=== PATIENT | female | born 1975 | race Caucasian/White ===

== ENCOUNTER 2021-06-17 20:43 | Emergency (ER) | payer MEDICAID ==
[~2021-06-17] VITALS: Ht 160 cm; Wt 57.0 kg
[2021-06-17] MEDS ORDERED: HYDROCO/APAP1 TA9 PO (21:53)
[2021-06-17 22:15] VITALS: BP 150/80
== END 2021-06-17 22:17 | disposition home or self-care (01) ==
LOC: ED 20:43
DX: S92.411A Displaced fracture of proximal phalanx of right great toe, initial encounter for closed fracture (principal); W22.09XA Striking against other stationary object, initial encounter; Y92.89 Other specified places as the place of occurrence of the external cause

== ENCOUNTER 2022-02-09 16:02 | Observation (INO) | payer MEDICAID ==
[2022-02-09] VITALS (19 sets, daily range): BP systolic 102–132; BP diastolic 80–104
[~2022-02-09] VITALS: Ht 160 cm; Wt 63.5 kg
[~2022-02-09 16:02] MED LIST: AMOX/K CLAV875 M1 PO; BACTRIM DS1 TAB PO; CYCLOBENZAPRINE10 MG PO; CYMBALTA30 MG PO; DIFLUCAN150 MG PO; HYDROCO/APAP1 TA9 PO; HYDROXYZ HCL10 MG PO; LOTRIMIN AF JOCK1 % TOP; MACROBID100 M1 PO; MEDDOSEPAK PO; MELOXICAM7.5 MG PO; METRONIDAZOLE500 MG PO; MOTRIN800 MG PO; NITROFURANTN100 MG PO; OMEPRAZOLE20 MG PO; VISTARIL 50MG C50 M1 PO
[2022-02-09 16:35] LABS: HEMATOCRIT 43.7 % (37.0-47.0); HEMOGLOBIN 14.6 g/dl (12.0-16.0); IMMATURE GRANULOCYTES 0.2 % (0.0-5.0); MEAN CORPUSCULAR HGB 30.7 pG CALC (26.0-32.0); MEAN CORPUSCULAR HGB CONC 33.4 g/dL CAL (32.0-36.0); NEUT# 3.01 thou/uL (2.00-7.15); RED BLOOD COUNT 4.75 mill/uL (4.20-5.60); RED CELL DISTRI WIDTH 11.7 % (11.5-15.5)
[2022-02-09 18:31] LABS: ALBUMIN 4.1 g/dL (3.2-5.0); ALKALINE PHOSPHATASE 63 u/l (38-126); ANION GAP 13 (6-22 (CALC)); BILIRUBIN, TOTAL 0.6 mg/dL (0.0-1.4); BUN 17 mg/dL (7-17); BUN/CREATININE RATIO 23 (12-20 (CALC)); CARBON DIOXIDE 26 mmol/l (22-30); CHLORIDE 104 mmol/l (95-108); CREATININE 0.7 mg/dL (0.5-1.0); GFR FOR AFR.AMER. > 60 ML/MIN (>=60 (CALC)); GFR OTHER RACES > 60 ML/MIN (>=60 (CALC)); POTASSIUM 3.6 mmol/l (3.5-5.1); SGOT/AST 20 u/l (14-36); SODIUM 139 mmol/l (137-146)
[2022-02-09 18:51] LABS: PROTHROMBIN TIME 9.9 SECONDS (9.0-12.5)
[2022-02-09 19:34] LABS: URINE BILIRUBIN - DIPSTICK NEGATIVE (NEGATIVE); URINE BLOOD DIPSTICK TRACE-INTACT (NEGATIVE); URINE COLOR YELLOW; URINE GLUCOSE - DIPSTICK NEGATIVE (NEGATIVE); URINE KETONE NEGATIVE (NEGATIVE); URINE LEUK ESTERASE NEGATIVE (NEGATIVE); URINE PH 6.5 (4.5-8.0); URINE PROTEIN - DIPSTICK NEGATIVE (NEG-TRACE); URINE SPECIFIC GRAVITY 1.015; URINE UROBILINOGEN - DIPSTICK 0.2 E.U./dL (0.2)
[2022-02-09 19:35] LABS: URINE NITRITE - DIPSTICK NEGATIVE (Negative)
[2022-02-10] VITALS (26 sets, daily range): BP systolic 89–136; BP diastolic 59–98
[2022-02-10 05:57] LABS: CHOLESTEROL HDL RATIO 3.3 (<4.4 (CALC))
[2022-02-10] MEDS ORDERED: ADLT ASA LOW81 MG PO (19:48)
[2022-02-10] MEDS ORDERED: PLAVIX75 MG PO (19:48)
== END 2022-02-10 21:15 | disposition home or self-care (01) ==
LOC: ED 16:02 → ED-I 19:20 → ED 19:31 → MS2 19:32 → ICU 19:32 → MS2 02-10 13:14
PROVIDERS: Nurse Practitioner; ADMIT Internal Medicine; ATTEND Internal Medicine
DX: R53.1 Weakness (principal); M06.9 Rheumatoid arthritis, unspecified; F41.9 Anxiety disorder, unspecified; F32.A Depression, unspecified; Z86.73 Personal history of transient ischemic attack (TIA), and cerebral infarction without residual deficits; Z20.822 Contact with and (suspected) exposure to COVID-19
CPT/HCPCS: A9579; G0378; J1650; Q3014

== ENCOUNTER 2022-07-14 15:52 | Emergency (ER) | payer MEDICAID ==
[2022-07-14] VITALS (13 sets, daily range): BP systolic 92–162; BP diastolic 57–120
[~2022-07-14] VITALS: Ht 160 cm; Wt 56.6 kg
[~2022-07-14 15:52] MED LIST changes: +ADLT ASA LOW81 MG PO; +PLAVIX75 MG PO
[2022-07-14 16:25] LABS: BASO% 0.1 % (0-3); HEMATOCRIT 39.4 % (37.0-47.0); HEMOGLOBIN 13.7 g/dl (12.0-16.0); IMMATURE GRANULOCYTES 0.2 % (0.0-5.0); MEAN CELL VOLUME 87.6 fL CALC (80.0-100.0); MEAN CORPUSCULAR HGB 30.4 pG CALC (26.0-32.0); MEAN CORPUSCULAR HGB CONC 34.8 g/dL CAL (32.0-36.0); MONO% 6.7 % (2-13); NEUT# 14.82 thou/uL (2.00-7.15); RED BLOOD COUNT 4.5 mill/uL (4.20-5.60); URINE BILIRUBIN - DIPSTICK NEGATIVE (NEGATIVE); URINE BLOOD DIPSTICK SMALL (NEGATIVE); URINE CLARITY SL CLOUDY; URINE COLOR YELLOW; URINE GLUCOSE - DIPSTICK NEGATIVE (NEGATIVE); URINE KETONE NEGATIVE (NEGATIVE); URINE LEUK ESTERASE SMALL (Negative); URINE NITRITE - DIPSTICK NEGATIVE (Negative); URINE PROTEIN - DIPSTICK NEGATIVE (NEG-TRACE); URINE SPECIFIC GRAVITY 1.025; URINE UROBILINOGEN - DIPSTICK 0.2 E.U./dL (0.2)
[2022-07-14 16:38] LABS: URINE BACTERIA FEW hpf; URINE SQUAMOUS EPITHELIAL CELL FEW EPI/hpf (0-FEW); URINE WBC 50-100 WBC/hpf (0-5)
[2022-07-14 16:48] LABS: ALBUMIN 3.9 g/dL (3.2-5.0); ALKALINE PHOSPHATASE 94 u/l (38-126); ANION GAP 8 (6-22 (CALC)); BILIRUBIN, TOTAL 0.6 mg/dL (0.0-1.4); BUN 17 mg/dL (7-17); BUN/CREATININE RATIO 18 (12-20 (CALC)); CARBON DIOXIDE 30 mmol/l (22-30); CHLORIDE 100 mmol/l (95-108); CREATININE 0.9 mg/dL (0.5-1.0); GFR FOR AFR.AMER. > 60 ML/MIN (>=60 (CALC)); GFR OTHER RACES > 60 ML/MIN (>=60 (CALC)); POTASSIUM 3.1 mmol/l (3.5-5.1); SODIUM 135 mmol/l (137-146); TOTAL PROTEIN 6.8 g/dL (6.3-8.2)
[2022-07-14 16:49] LABS: SGOT/AST 39 u/l (14-36)
[2022-07-14] MEDS ORDERED: PERCOCET 10/31 COMBO PO (22:07)
[2022-07-14] MEDS ORDERED: KEFLEX500 MG PO (22:07)
== END 2022-07-14 22:45 | disposition home or self-care (01) ==
LOC: ED 15:52
PROVIDERS: Emergency Medicine
DX: N13.6 Pyonephrosis (principal); M06.9 Rheumatoid arthritis, unspecified; F41.9 Anxiety disorder, unspecified; F32.A Depression, unspecified; Z86.73 Personal history of transient ischemic attack (TIA), and cerebral infarction without residual deficits; Z87.442 Personal history of urinary calculi
CPT/HCPCS: Q9967

== ENCOUNTER 2022-11-24 11:53 | Emergency (ER) | payer MEDICAID ==
[~2022-11-24] VITALS: Ht 160 cm; Wt 56.0 kg
[~2022-11-24 11:53] MED LIST changes: +KEFLEX500 MG PO; +PERCOCET 10/31 COMBO PO
[2022-11-24 12:20] VITALS: BP 134/97
[2022-11-24 13:03] LABS: BASO% 0.2 % (0-3); EOS% 2.1 % (0-8); HEMATOCRIT 40.6 % (37.0-47.0); HEMOGLOBIN 13.2 g/dl (12.0-16.0); IMMATURE GRANULOCYTES 0.1 % (0.0-5.0); LYMPH% 25.2 % (15-41); MEAN CELL VOLUME 89.4 fL CALC (80.0-100.0); MEAN CORPUSCULAR HGB 29.1 pG CALC (26.0-32.0); MEAN CORPUSCULAR HGB CONC 32.5 g/dL CAL (32.0-36.0); MONO% 10.1 % (2-13); NEUT# 5.13 thou/uL (2.00-7.15); NEUT% 62.3 % (42-76); RED BLOOD COUNT 4.54 mill/uL (4.20-5.60)
[2022-11-24 13:16] LABS: URINE BILIRUBIN - DIPSTICK NEGATIVE (NEGATIVE); URINE BLOOD DIPSTICK LARGE (NEGATIVE); URINE COLOR YELLOW; URINE GLUCOSE - DIPSTICK NEGATIVE (NEGATIVE); URINE KETONE NEGATIVE (NEGATIVE); URINE PROTEIN - DIPSTICK >=300 mg/dL (NEG-TRACE); URINE SPECIFIC GRAVITY 1.015; URINE UROBILINOGEN - DIPSTICK 0.2 E.U./dL (0.2)
[2022-11-24 13:17] LABS: ALBUMIN 3.8 g/dL (3.2-5.0); ALKALINE PHOSPHATASE 100 u/l (38-126); ANION GAP 13 (6-22 (CALC)); BUN 14 mg/dL (7-17); BUN/CREATININE RATIO 15 (12-20 (CALC)); CARBON DIOXIDE 26 mmol/l (22-30); CHLORIDE 104 mmol/l (95-108); CREATININE 0.9 mg/dL (0.5-1.0); GFR FOR AFR.AMER. > 60 ML/MIN (>=60 (CALC)); GFR OTHER RACES > 60 ML/MIN (>=60 (CALC)); POTASSIUM 3.7 mmol/l (3.5-5.1); SGOT/AST 27 u/l (14-36); SODIUM 139 mmol/l (137-146); TOTAL PROTEIN 6.7 g/dL (6.3-8.2)
[2022-11-24 13:18] LABS: URINE LEUK ESTERASE MODERATE (NEGATIVE); URINE NITRITE - DIPSTICK NEGATIVE (Negative)
[2022-11-24 13:20] LABS: URINE BACTERIA MODERATE hpf; URINE EPITHELIAL CELLS MODERATE EPI/hpf (0-FEW); URINE MUCUS MANY hpf (NONE-FEW); URINE RBC 25-50 RBC/hpf (0-5); URINE WBC 20-50 WBC/hpf (0-5)
[2022-11-24 13:21] LABS: BILIRUBIN, TOTAL 0.2 mg/dL (0.02-1.3)
[2022-11-24 14:00] VITALS: BP 121/95
[2022-11-24] MEDS ORDERED: TORADOL PO (15:26)
[2022-11-24] MEDS ORDERED: KEFLEX500 MG PO (15:26)
[2022-11-24 16:09] VITALS: BP 121/95
== END 2022-11-24 16:14 | disposition home or self-care (01) ==
LOC: ED 11:53
PROVIDERS: Family Medicine
DX: N13.6 Pyonephrosis (principal); M06.9 Rheumatoid arthritis, unspecified; F41.9 Anxiety disorder, unspecified; F32.A Depression, unspecified; Z86.73 Personal history of transient ischemic attack (TIA), and cerebral infarction without residual deficits; Z87.442 Personal history of urinary calculi